=== PATIENT | female | born 1960 | race Caucasian/White ===

== ENCOUNTER 2019-03-02 05:20 | Emergency (ER) | payer BC ==
[2019-03-02] MEDS ORDERED: Ondansetron 4 MG/2 ML SDV IVPUSH ONE (05:40)
[2019-03-02] MEDS ORDERED: Sodium Chloride 0.9% 1,000 ML IV STA (05:40)
[2019-03-02] MEDS ORDERED: Sodium Chloride 0.9% 10 ML Syringe FLUSH PRN (05:40)
[2019-03-02] MEDS ORDERED: LORazepam 2 MG/ML SDV IVPUSH ONE (05:42)
--- NOTE | 2019-03-02 06:20 | EDM.PDOC ---
<Dhruv Costa - Last Filed: 03/02/19 07:59> ED HPI GENERAL MEDICAL PROBLEM - General Chief Complaint: Gastrointestinal Problem Stated Complaint: [facility] Time Seen by Provider: 03/02/19 05:35 - Related Data Allergies Allergy/AdvReac Type Severity Reaction Status Date / Time No Known Allergies Allergy Verified 03/02/19 05:28 Home Meds: Home Meds Ondansetron [Zofran ODT] 4 mg PO Q6H PRN #20 tab.dis 03/02/19 [Rx] Course - Vital Signs Last Recorded V/S: Last Vital Signs Temp 98.8 F 03/02/19 08:15 Pulse 71 03/02/19 08:15 Resp 15 03/02/19 08:15 BP 118/72 03/02/19 08:15 Pulse Ox 97 03/02/19 08:15 - Orders/Labs/Meds Orders: Active Orders 24 hr Category Date Time Status EKG Documentation Completion [RC] ASDIRECTED Care 03/02/19 05:32 Active EKG Documentation Completion [RC] ASDIRECTED Care 03/02/19 06:42 Active Peripheral IV Care [RC] . DIRECTED Care 03/02/19 05:41 Active UA W/MICROSCOPIC [URIN] Stat Lab 03/02/19 07:56 Results Dextrose 5%-0.9% NaCl [Dextrose 5%-Normal Saline] 1,000 Med 03/02/19 08:00 Active ml IV ASDIRECTED Sodium Chloride 0.9% [Saline Flush] Med 03/02/19 05:40 Active 10 ml FLUSH ASDIRECTED PRN ED Antiemetic Medication Reflex [OM.PC] Stat Oth 03/02/19 05:41 Ordered Peripheral IV Insertion Adult [OM.PC] Stat Oth 03/02/19 05:40 Ordered EKG 12 Lead [EK] Stat Ther 03/02/19 05:32 Ordered EKG 12 Lead [EK] Stat Ther 03/02/19 06:42 Ordered Medication Orders Dextrose/Sodium Chloride (Dextrose 5%-Normal Saline) 1,000 mls @ 999 mls/hr IV ASDIRECTED MYRIAM Last Admin: 03/02/19 08:05 Dose: 999 mls/hr Sodium Chloride (Saline Flush) 10 ml FLUSH ASDIRECTED PRN PRN Reason: Keep Vein Open Last Admin: 03/02/19 05:48 Dose: 10 ml Labs: Laboratory Tests 03/02/19 03/02/19 03/02/19 Range/Units 05:30 05:30 07:56 WBC 5.82 (3.98-10.04) K/mm3 RBC 4.46 (3.98-5.22) M/mm3 Hgb 14.0 (11.2-15.7) gm/L Hct 39.8 (34.1-44.9) % MCV 89.2 (79.4-94.8) fl MCH 31.4 (25.6-32.2) pg MCHC 35.2 (32.2-35.5) g/dl RDW Std Deviation 44.0 (36.4-46.3) fL Plt Count 174 L (182-369) K/mm3 MPV 10.4 (9.4-12.3) fl Neut % (Auto) 78.4 H (34.0-71.1) % Lymph % (Auto) 16.0 L (19.3-51.7) % [place] % (Auto) 5.3 (4.7-12.5) % Eos % (Auto) 0 L (0.7-5.8) Baso % (Auto) 0.0 L (0.1-1.2) % Neut # (Auto) 4.56 (1.56-6.13) K/mm3 Lymph # (Auto) 0.93 L (1.18-3.74) K/mm3 [place] # (Auto) 0.31 (0.24-0.36) K/mm3 Eos # (Auto) 0.00 L (0.04-0.36) K/mm3 Baso # (Auto) 0.00 L (0.01-0.08) K/mm3 Sodium 121 L (136-145) mEq/L Potassium 3.5 (3.5-5.1) mEq/L Chloride 82 L (98-107) mEq/L Carbon Dioxide 17 L (21-32) mEq/L Anion Gap 25.5 H (5-15) BUN 9 (7-18) mg/dL Creatinine 0.5 L (0.55-1.02) mg/dL Est Cr Clr Drug Dosing 89.96 mL/min Estimated GFR (MDRD) > 60 (>60) mL/min BUN/Creatinine Ratio 18.0 (14-18) Glucose 108 H (74-106) mg/dL Calcium 9.7 (8.5-10.1) mg/dL Total Bilirubin 1.6 H (0.2-1.0) mg/dL AST 30 (15-37) U/L ALT 23 (14-59) U/L Alkaline Phosphatase 81 (46-116) U/L Troponin I < 0.017 (0.00-0.056) ng/mL Total Protein 7.7 (6.4-8.2) g/dl Albumin 3.9 (3.4-5.0) g/dl Globulin 3.8 gm/dL Albumin/Globulin Ratio 1.0 (1-2) Lipase 155 (73-393) U/L Urine Color Yellow (Yellow) Urine Appearance Clear (Clear) Urine pH 6.0 (5.0-8.0) Ur Specific [place] > or = 1.030 (1.005-1.030) Urine Protein 2+ H (Negative) Urine Glucose (UA) Negative (Negative) Urine Ketones 4+ H (Negative) Urine Occult Blood Trace-intact H (Negative) Urine Nitrite Negative (Negative) Urine Bilirubin Negative (Negative) Urine Urobilinogen 0.2 (0.2-1.0) Ur Leukocyte Esterase Negative (Negative) Meds: Medications Generic Name Dose Route Start Last Admin Trade Name Freq PRN Reason Stop Dose Admin Dextrose/Sodium Chloride 1,000 mls @ 999 mls/hr 03/02/19 08:00 03/02/19 08:05 Dextrose 5%-Normal Saline IV 999 mls/hr ASDIRECTED MYRIAM Administration Sodium Chloride 10 ml 03/02/19 05:40 03/02/19 05:48 Saline Flush FLUSH 10 ml ASDIRECTED PRN Administration Keep Vein Open Discontinued Medications Generic Name Dose Route Start Last Admin Trade Name Freq PRN Reason Stop Dose Admin Sodium Chloride 1,000 mls @ 1,000 mls/hr 03/02/19 05:40 03/02/19 05:48 Normal Saline IV 03/02/19 06:39 1,000 mls/hr .BOLUS STA Administration Lorazepam 0.5 mg 03/02/19 05:42 03/02/19 05:48 Ativan IVPUSH 03/02/19 05:43 0.5 mg ONETIME ONE Administration Metoclopramide HCl 7.5 mg 03/02/19 07:58 03/02/19 08:05 Reglan IVPUSH 03/02/19 07:59 7.5 mg ONETIME ONE Administration Ondansetron HCl 4 mg 03/02/19 05:40 03/02/19 05:48 Zofran IVPUSH 03/02/19 05:41 4 mg ONETIME ONE Administration - Re-Assessments/Exams Free Text/Narrative Re-Assessment/Exam: 03/02/19 07:59 patient just got back from ultrasound suite. She is having increased nausea. Still feeling dizzy lightheaded with standing. Will give her Reglan 7.5 mg IV for nausea relief. Second liter of fluids will be D5 normal saline at open Departure - Departure Disposition: Home, Self-Care 01 Clinical Impression: Gastroenteritis, Dehydration - Discharge Information Prescriptions: Ondansetron [Zofran ODT] 4 mg PO Q6H PRN #20 tab.dis PRN Reason: Nausea\vomiting Referrals: PCP,Not In Area [Primary Care Provider] - Forms: ED Department Discharge Additional Instructions: Drink plenty of fluids. Take zofran every 6 hours as needed for nausea and vomiting. Please return if you are worse. - My Orders Last 24 Hours: My Active Orders 03/02/19 05:32 EKG Documentation Completion [RC] ASDIRECTED EKG 12 Lead [EK] Stat 03/02/19 05:40 Sodium Chloride 0.9% [Saline Flush] 10 ml FLUSH ASDIRECTED PRN Peripheral IV Insertion Adult [OM.PC] Stat 03/02/19 05:41 Peripheral IV Care [RC] . DIRECTED ED Antiemetic Medication Reflex [OM.PC] Stat 03/02/19 06:42 EKG Documentation Completion [RC] ASDIRECTED EKG 12 Lead [EK] Stat 03/02/19 07:56 UA W/MICROSCOPIC [URIN] Stat - Assessment/Plan Last 24 Hours: My Active Orders 03/02/19 05:32 EKG Documentation Completion [RC] ASDIRECTED EKG 12 Lead [EK] Stat 03/02/19 05:40 Sodium Chloride 0.9% [Saline Flush] 10 ml FLUSH ASDIRECTED PRN Peripheral IV Insertion Adult [OM.PC] Stat 03/02/19 05:41 Peripheral IV Care [RC] . DIRECTED ED Antiemetic Medication Reflex [OM.PC] Stat 03/02/19 06:42 EKG Documentation Completion [RC] ASDIRECTED EKG 12 Lead [EK] Stat 03/02/19 07:56 UA W/MICROSCOPIC [URIN] Stat <Dav Mccray - Last Filed: 03/02/19 08:36> ED HPI GENERAL MEDICAL PROBLEM - General Source of Information: Reports: Patient, EMS, Family History Limitations: Reports: No Limitations - History of Present Illness INITIAL COMMENTS - FREE TEXT/NARRATIVE: The patient presents by [facility] for nausea, vomiting and epigastric pain. The patient is on a very restrictive diet due to sugar and carb intolerance and allergies. She is traveling from [place] to [place]. She ate some of her food yesterday and after that she did not feel right. She developed nausea and then vomited and now she is anxious. She does have epigastric pain. She has no fever, chills, cough, congestion, chest pain or shortness of breath. Onset: Gradual Duration: Day(s): (Yesterday) Location: Reports: Abdomen Quality: Reports: Ache Severity: Moderate Improves with: Reports: None Worsens with: Reports: None Associated Symptoms: Reports: Nausea/Vomiting. Denies: Chest Pain, Cough, Fever /Chills, Headaches, Shortness of Breath Epigastric Pain Score (Numeric/FACES): 8 Past Medical History Immunologic History: Reports: Other (See Below) Other Immunologic History: chronic inflammation Social & Family History - Tobacco Use Smoking Status *Q: Never Smoker - Caffeine Use Caffeine Use: Reports: None - Recreational Drug Use Recreational Drug Use: No ED ROS GENERAL - Review of Systems Review Of Systems: See Below Constitutional: Reports: No Symptoms HEENT: Reports: No Symptoms Respiratory: Reports: No Symptoms Cardiovascular: Reports: No Symptoms Endocrine: Reports: No Symptoms GI/Abdominal: Reports: Abdominal Pain (Epigastric), Nausea, Vomiting. Denies: Diarrhea : Reports: No Symptoms Musculoskeletal: Reports: No Symptoms Skin: Reports: No Symptoms ED EXAM, GI/ABD - Physical Exam Exam: See Below Exam Limited By: No Limitations General Appearance: Alert, Mild Distress Ears: Normal External Exam Nose: Normal Inspection Head: Atraumatic, Normocephalic Neck: Normal Inspection Respiratory/Chest: No Respiratory Distress, Lungs Clear, Normal Breath Sounds Cardiovascular: Regular Rate, Rhythm, No Edema, No Murmur GI/Abdominal Exam: Soft, Non-Tender, No Organomegaly, No Mass Back Exam: Normal Inspection Extremities: Normal Inspection Course - Re-Assessments/Exams Free Text/Narrative Re-Assessment/Exam: 03/02/19 06:19 I ordered an IV NS bolus, zofran 4mg IV, ativan 0.5mg IV, labs, UA and an EKG. Her EKG had lots of artifact. I will repeat one. She feels better after the ativan. 03/02/19 06:54 Her CBC looks good. Her Na was low at 121. Her CO2 was low at 17. Her anion gap was elevated at 25.5. Her total bili was elevated at 1.6. Her troponin is negative. Her lipase is normal. 03/02/19 08:31 I did an US of her RUQ and that looks good. She feels better. I will discharge her home. Departure - Departure Time of Disposition: 08:35 Condition: Good - Discharge Information *PRESCRIPTION DRUG MONITORING PROGRAM REVIEWED*: Not Applicable *COPY OF PRESCRIPTION DRUG MONITORING REPORT IN PATIENT HAM: Not Applicable
[2019-03-02] MEDS ORDERED: Metoclopramide 10 MG/2 ML SDV IVPUSH ONE (07:58)
[2019-03-02] MEDS ORDERED: Dextrose 5%-0.9% NaCl 1,000 ML IV SCH (08:00)
--- NOTE | 2019-03-02 08:07 | US ---
Limited abdominal ultrasound: Multiple real-time images of the upper right abdomen were obtained. Comparison: No prior abdominal imaging. Findings: Liver shows no focal abnormality. Gallbladder contains no shadowing gallstones stones. No gallbladder wall thickening or biliary duct dilatation is seen. Right kidney shows no hydronephrosis or mass and has a length of 11.0 cm. Pancreas is felt to be within normal limits. Inferior vena cava is patent. Portal vein shows normal hepatopedal flow. Impression: 1. No abnormality is appreciated on right upper quadrant abdominal ultrasound. Diagnostic code #1
== END 2019-03-02 09:15 | disposition home or self-care (01) ==
LOC: JD.ED 05:20
DX: K52.9 Noninfective gastroenteritis and colitis, unspecified (principal); E86.0 Dehydration
CPT/HCPCS: 36415; 76705; 80053; 81001; 83690; 84484; 85025; 93005; 96361; 96374; 96375; 99284; J2060; J2405; J2765; J7040; J7042